=== PATIENT | female | born 1945 | race Caucasian/White ===

== ENCOUNTER 2017-08-21 23:50 | Emergency (ER) | payer MEDICARE, OTHER ==
[~2017-08-21] VITALS: Ht 157.5 cm; Wt 49.1 kg
[~2017-08-21 23:50] MED LIST: ACET325 PO; AMLO10 PO; CLON.2 PO; COZA100T PO; GABA600T PO; KCL10C PO; LEVO50TA4 PO; MENT4GEL2 EX; PROT40TA PO; REME15TA PO; TRAM100T19 PO; TRAZ50TA4 PO
[2017-08-21 23:54] VITALS: BP 128/62; PULSE 93; RESP 32; TEMP 100.4; O2SAT 93
[2017-08-21 23:55] VITALS: O2SAT 95
[2017-08-22] MEDS ORDERED: methylPREDNISolone SOD SUCC 125 MG/2 ML VIAL IV PUSH ONE (00:15)
[2017-08-22] MEDS ORDERED: CEFEPIME INJ 2,000 MG in SODIUM CHLORIDE 0.9% INJ 100 ML IV ONE (00:15)
[2017-08-22] MEDS ORDERED: ACETAMINOPHEN 325 MG TAB PO ONE (00:15)
[2017-08-22] MEDS ORDERED: SODIUM CHLORIDE 0.9% FLUSH 10 ML FLUSH IVF PRN (00:15)
[2017-08-22] MEDS ORDERED: PANT20 PO (00:23)
[2017-08-22] MEDS ORDERED: MS C30TA5 (00:23)
[2017-08-22] MEDS ORDERED: DIAZ2 PO (00:23)
[2017-08-22] MEDS ORDERED: VITA100018 PO (00:23)
[2017-08-22] MEDS ORDERED: MOBI7.5T PO (00:23)
[2017-08-22] MEDS ORDERED: LEVO.05 PO (00:23)
[2017-08-22] MEDS ORDERED: NEUR600T PO (00:23)
[2017-08-22] MEDS ORDERED: CELE20TA PO (00:23)
[2017-08-22] MEDS ORDERED: TRAZ100T10 PO (00:23)
[2017-08-22] MEDS ORDERED: AMLO10 PO (00:23)
[2017-08-22] MEDS ORDERED: MS C15TA7 PO (00:23)
[2017-08-22] MEDS ORDERED: LOSA100T PO (00:23)
[2017-08-22] MEDS ORDERED: TYLE325T PO (00:23)
[2017-08-22] MEDS ORDERED: POTA-163 PO (00:23)
[2017-08-22] MEDS ORDERED: FURO1TAB62 PO (00:23)
[2017-08-22] MEDS ORDERED: MORP-43 PO (00:23)
[2017-08-22] MEDS ORDERED: LEVA500T33 PO (00:23)
[2017-08-22] MEDS: RESP: ALBUTEROL 2.5 MG/IPRATROPIUM 0.5 MG NEB (SCH) INH ×2 (00:29→00:30)
--- NOTE | 2017-08-22 00:40 | RADRPT ---
EXAM DATE: 08/22/2017 12:36 AM EDT AGE/SEX: 71 years / Female INDICATIONS: Shortness of breath. CLINICAL DATA: This is the patient's initial encounter. Patient reports that signs and symptoms have been present for 1 day and indicates a pain score of 0/10. MEDICAL/SURGICAL HISTORY: Hypertension. Chronic obstructive pulmonary disease. Myocardial infa rction. Laryngeal cancer. Hysterectomy. Port placement. COMPARISON: No prior exams available for comparison. FINDINGS: The lungs are clear without infiltrate, nodule, or mass. There is no appreciable pleural effusion for technique. Heart and mediastinum are unremarkable. Right IJ infusaport is present with tip overlapping the expected location of the SVC. CONCLUSION: No acute cardiopulmonary disease. Electronically signed by: Reginald Aguila MD 08/22/2017 12:39 AM EDT
[2017-08-22 00:42] VITALS: O2SAT 96
--- NOTE | 2017-08-22 00:45 | PD ---
HPI Chief Complaint: Respiratory Symptoms Time Seen by Provider: 00:07 Travel History International Travel<30 days: No Contact w/Intl Traveler<30days: No Traveled to known affect area: No History of Present Illness HPI 71-year-old female presents to the emergency department by EMS transport from local retirement for progressively worsening shortness of breath and oxygen desaturation. Patient is status post complete laryngectomy for laryngeal carcinoma and has been under the care of [facility] for management of replaceable laryngectomy tube. Patient goes every 3 months to the [facility] was previously under the care of Dr. Johan Cerna and at her last visit was managed by a new physician April 2017 for replacement of her laryngectomy tube. Patient had chest x-ray yesterday through the retirement and was identified to have a right lower lobe infiltrate and was started on Levaquin. Patient had Levaquin 500 mg 1 dose today. Patient presents here with shortness of breath fever and tachycardia. Patient has had laryngectomy tube in place for greater than 9 years. Patient has had issues with airway occlusion from mucous plugging in the past. Last imaging study that we have in our facility 03/07/14 identified no soft tissue mass or lymphadenopathy within the neck trace to tracheostomy noted extensive emphysematous changes involving the upper lobes bilaterally patient also has history of scleroderma porphyria cutanea tarda narcotic abuse and prior overdose and chronic pain syndrome. PFSH Past Medical History Arthritis: Yes Asthma: No Blood Disorders: No Anxiety: Yes Depression: Yes Heart Rhythm Problems: No Cancer: Yes (LARYNX) Cardiovascular Problems: Yes (1992) High Cholesterol: Yes Chemotherapy: Yes Chest Pain: Yes Congestive Heart Failure: No COPD: Yes Cerebrovascular Accident: Yes (TIA) Diabetes: No Diminished Hearing: No Endocrine: Yes Gastrointestinal Disorders: Yes GERD: Yes Glaucoma: No Genitourinary: No Headaches: Yes Hepatitis: No Hiatal Hernia: No Hypertension: Yes Immune Disorder: Yes (SCLERADERMA) Implanted Vascular Access Dvce: Yes (NON FUNCTIONAL INFUSAPORT) Insomnia: Yes Medical other: Yes (SCLERADERMA, LUPUS, GERD) Musculoskeletal: Yes Neurologic: Yes Psychiatric: Yes Reproductive: No Respiratory: Yes (PERM. TRACH S/P LARYNGECTOMY) Migraines: Yes Myocardial Infarction: Yes (1992) Pneumonia: Yes Radiation Therapy: Yes Seizures: No Sleep Apnea: No Thyroid Disease: Yes (HYPOTHYROID) Ulcer: No PNEUMOCCOCAL Vaccine (Year): 1 Menopausal: Yes : 2 Para: 1 Miscarriage: 1 : 0 Past Surgical History Abdominal Surgery: No AICD: No Appendectomy: No Body Medical Devices: VOICE BOX WITH LARYNGECTOMY 9 YEARS AGO, INFUZA PORT TO RIGHT CHEST -NONFUN Cardiac Surgery: No Cholecystectomy: No Ear Surgery: No Endocrine Surgery: No Eye Surgery: No Genitourinary Surgery: No Gynecologic Surgery: Yes Hysterectomy: Yes (RADICAL) Neurologic Surgery: No Oral Surgery: Yes (LARYNGECTOMY, ESOPHAGEAL DILATION) Pacemaker: No Thoracic Surgery: Yes (PORT PLACEMENT) Other Surgery: Yes (SEE H&P) Social History Alcohol Use: No Tobacco Use: No (QUIT 40 YEARS AGO ) Substance Use: No Allergies-Medications (Allergen,Severity, Reaction): Coded Allergies: *MDRO Multi-Drug Resistant Organism (Verified Allergy, Unknown, 08/22/17) MRSA Reported Meds & Prescriptions Reported Meds & Active Scripts Active Reported Valium (Diazepam) 2 Mg Tab 2 Mg PO QID PRN Trazodone (Trazodone HCl) 100 Mg Tablet 100 Mg PO HS Synthroid (Levothyroxine Sodium) 50 Mcg Tab 50 Mcg PO DAILY Tylenol (Acetaminophen) 325 Mg Tab 975 Mg PO Q6H PRN Protonix (Pantoprazole Sodium) 20 Mg Tab 20 Mg PO DAILY Potassium Chloride ER (Potassium Chloride) 20 Meq Tab 20 Meq PO DAILY Norvasc (Amlodipine Besylate) 10 Mg Tab 10 Mg PO DAILY Neurontin (Gabapentin) 600 Mg Tab 1,200 Mg PO TID Ms Contin (Morphine Sulfate) 15 Mg Tab 30 Mg PO BID Morphabond ER 12 HR (Morphine Sulfate) 15 Mg Tab 15 Mg PO Q12H Mobic (Meloxicam) 7.5 Mg Tab 7.5 Mg PO DAILY Losartan (Losartan Potassium) 100 Mg Tab 100 Mg PO DAILY Lasix (Furosemide) 20 Mg Tab 20 Mg PO BID Vitamin D3 (Cholecalciferol) 1,000 Unit Tab 1,000 Units PO DAILY Levaquin (Levofloxacin) 500 Mg Tablet 500 Mg PO DAILY Celexa (Citalopram Hydrobromide) 20 Mg Tab 20 Mg PO DAILY Review of Systems General / Constitutional: No: Fever, Chills HENT: Positive: Congestion Cardiovascular: No: Chest Pain or Discomfort Respiratory: Positive: Cough, Shortness of Breath, Wheezing Gastrointestinal: No: Vomiting, Abdominal Pain Genitourinary: No: Flank Pain Musculoskeletal: No: Myalgias, Arthralgias Skin: No Rash Neurologic: No: Weakness Psychiatric: Positive: Anxiety Hematologic/Lymphatic: No: Easy Bruising Physical Exam Narrative GENERAL: Well-developed thin elderly appearing female in moderate respiratory distress receiving updraft treatment SKIN: Warm and dry. HEAD: Normocephalic. EYES: No scleral icterus. No injection or drainage. NECK: Supple, trachea midline. No JVD or lymphadenopathy. Midline tracheostomy with laryngectomy tube in place CARDIOVASCULAR: Increased regular rate and rhythm without murmurs, gallops, or rubs. RESPIRATORY: Breath sounds equal and diminished bilaterally. No accessory muscle use. GASTROINTESTINAL: Abdomen soft, non-tender, nondistended. MUSCULOSKELETAL: No cyanosis, or edema. BACK: Nontender without obvious deformity. No CVA tenderness. Data Data Last Documented VS Vital Signs Date Time Temp Pulse Resp B/P (MAP) Pulse Ox O2 Delivery O2 Flow Rate FiO2 08/22/17 05:22 08/22/17 04:25 97 Trach Collar 6.00 70 08/22/17 03:01 128 20 08/21/17 23:54 100.4 Orders Orders Complete Blood Count With Diff (08/22/17:) Comprehensive Metabolic Panel (08/22/17:) B-Type Natriuretic Peptide (08/22/17:) Act Partial Throm Time (Ptt) (08/22/17:09) Prothrombin Time / Inr (Pt) (08/22/17 00:09) Magnesium (Mg) (08/22/17 00:09) Ckmb (Isoenzyme) Profile (08/22/17 00:09) Troponin I (08/22/17:09) Arterial Blood Gas (Abg) (08/22/17 00:09) Blood Culture (08/22/17:09) Iv Access Insert/Monitor (08/22/17:) Electrocardiogram (08/22/17:) Ecg Monitoring (08/22/17:09) Oximetry (08/22/17 00:09) Oxygen Administration (08/22/17 00:09) Chest, Single Ap (08/22/17 00:09) Sodium Chloride 0.9% Flush (Ns Flush) (08/22/17 00:15) Methylprednisolone So Succ Inj (Solumedr (08/22/17 00:15) Albuterol-Ipratropium Neb (Duoneb Neb) (08/22/17 00:15) Lactic Acid (08/22/17 00:09) Acetaminophen (Tylenol) (08/22/17 00:15) Cefepime Inj (Maxipime Inj) (08/22/17 00:15) Resp Oxygen Cool Aerosol (08/22/17 ) Sodium Chlor 0.9% 1000 Ml Inj (Ns 1000 M (08/22/17 01:15) CKMB (08/22/17 00:43) CKMB% (08/22/17 00:43) Radiology Film Requests (08/22/17 ) Sodium Chlorid 0.9% 500 Ml Inj (Ns 500 M (08/22/17 04:30) Labs Laboratory Tests Test 08/22/17 00:12 08/22/17 00:43 Blood Gas Puncture Site RT RADIAL Blood Gas Patient Temperature 98.6 Blood Gas HCO3 28 mmol/L Blood Gas Base Excess 2.3 mmol/L Blood Gas Oxygen Saturation 96 % Arterial Blood pH 7.30 Arterial Blood Partial Pressure CO2 58 mmHg Arterial Blood Partial Pressure O2 115 mmHG Arterial Blood Oxygen Content 15.9 Vol % Arterial Blood Carboxyhemoglobin 0.7 % Arterial Blood Methemoglobin 0.9 % Blood Gas Hemoglobin 11.6 G/DL Oxygen Delivery Device TRACH MASK Blood Gas Liter Flow 6 L/M Blood Gas Inspired Oxygen 100 % White Blood Count 18.4 TH/MM3 Red Blood Count 4.00 MIL/MM3 Hemoglobin 11.9 GM/DL Hematocrit 35.9 % Mean Corpuscular Volume 89.6 FL Mean Corpuscular Hemoglobin 29.8 PG Mean Corpuscular Hemoglobin Concent 33.2 % Red Cell Distribution Width 14.4 % Platelet Count 160 TH/MM3 Mean Platelet Volume 10.6 FL Neutrophils (%) (Auto) 87.9 % Lymphocytes (%) (Auto) 3.9 % Monocytes (%) (Auto) 7.6 % Eosinophils (%) (Auto) 0.0 % Basophils (%) (Auto) 0.6 % Neutrophils # (Auto) 16.2 TH/MM3 Lymphocytes # (Auto) 0.7 TH/MM3 Monocytes # (Auto) 1.4 TH/MM3 Eosinophils # (Auto) 0.0 TH/MM3 Basophils # (Auto) 0.1 TH/MM3 CBC Comment DIFF FINAL Differential Comment Prothrombin Time 11.2 SEC Prothromb Time International Ratio 1.1 RATIO Activated Partial Thromboplast Time 31.0 SEC Blood Urea Nitrogen 38 MG/DL Creatinine 1.77 MG/DL Random Glucose 143 MG/DL Total Protein 9.5 GM/DL Albumin 3.8 GM/DL Calcium Level 8.4 MG/DL Magnesium Level 2.2 MG/DL Alkaline Phosphatase 80 U/L Aspartate Amino Transf (AST/SGOT) 46 U/L Alanine Aminotransferase (ALT/SGPT) 18 U/L Total Bilirubin 0.4 MG/DL Sodium Level 138 MEQ/L Potassium Level 4.9 MEQ/L Chloride Level 99 MEQ/L Carbon Dioxide Level 28.6 MEQ/L Anion Gap 10 MEQ/L Estimat Glomerular Filtration Rate 28 ML/MIN Lactic Acid Level 2.2 mmol/L Total Creatine Kinase 201 U/L Creatine Kinase MB 3.4 NG/ML Creatine Kinase MB % 1.7 % Troponin I 0.02 NG/ML B-Type Natriuretic Peptide 30 PG/ML MDM Medical Decision Making Medical Screen Exam Complete: Yes Emergency Medical Condition: Yes Medical Record Reviewed: Yes Interpretation(s) EKG: Sinus tachycardia with artifact and rare PVC nonspecific ST-T changes no acute ST elevation or injury pattern abg 6L trach cuff pH 7.3, PCO2 58, PO2 115, O2 sat 96%, bicarb 28 CK: 201 mildly elevated CK-MB 3.4 elevated MB percent 1.7% not elevated; troponin I 0.02, not elevated; BNP 30, elevated Lactic acid 2.2 mildly elevated Last Impressions Chest X-Ray 08/22/17 0009 Signed Impressions: CONCLUSION: No acute cardiopulmonary disease. CBC & BMP Diagram 08/22/17 00:43 Total Protein 9.5 H, Albumin 3.8, Calcium Level 8.4 L, Magnesium Level 2.2, Alkaline Phosphatase 80, Aspartate Amino Transf (AST/SGOT) 46 H, Alanine Aminotransferase (ALT/SGPT) 18, Total Bilirubin 0.4 Vital Signs Date Time Temp Pulse Resp B/P (MAP) Pulse Ox O2 Delivery O2 Flow Rate FiO2 08/22/17 03:01 128 20 97/53 (68) 94 Trach Collar 8.00 08/22/17 00:42 96 Trach Collar 08/22/17 00:42 96 Trach Collar 08/21/17 23:55 95 Trach Collar 8.00 98 08/21/17 23:54 100.4 93 32 128/62 (84) 93 Differential Diagnosis Dyspnea, exacerbation COPD, pneumonia, sepsis, device malfunction, airway obstruction, respiratory failure, Narrative Course Patient immediately transferred from EMS stretcher to ED stretcher placed on monitor and storage bin tender with continuous pulse oximetry respiratory at bedside transition to trach cuff with humidified air and DuoNeb updrafts 3 Solu-Medrol 125 mg administered attempted to suction/clear airway. Patient with tracheostomy status post laryngectomy for laryngeal cancer with laryngectomy tube in place with dried secretions at the orifice. No bleeding or drainage at the stoma. Patient does be demonstrating work of breathing. IV access obtained by EMS specimens collected and sent for resulting chest x-ray ordered reveals no lobar infiltrate patient identified to have fever 100.4 cultures obtained lactic acid obtained patient given cefepime had just received Levaquin prior to arrival to the emergency department. CBC with automated differential leukocytosis 18,000 with lactic acid of 2.2 tachycardia and tachypnea with outpatient chest x-ray consistent with right lower lobe infiltrate consistent with sepsis/severe sepsis Patient with renal insufficiency by metabolic panel Cardiac enzymes are found to be not elevated patient's case discussed with agricultural produce sorter regarding sepsis exacerbation COPD respiratory distress discussed patient's laryngectomy tube and specialist and scheduled plan device change first week of August with current presentation recommends transfer to [facility] for definitive care by her managing ENT/ENT group Call placed to [facility] and case discussed with on-call ENT for patient's ENT doctor Dr Lewis (previously Dr Johan Martell) Patient left ED via EMS at [phone] go directly to [facility] emergency department under the care of Dr. Paulino ED physician and ENT physician Dr. Alvarez Physician Communication Physician Communication Discussed case with agricultural produce sorter Dr Mayo; discussed case with [facility] on-call ENT Dr. Alvarez will accept patient for evaluation investigation of patient's laryngectomy tube device with current issues with oxygenation directly to the emergency department from our emergency department; discussed with Dr. Paulino emergency department physician at [facility] will accept patient [facility] for evaluation by ENT Dr. Alvarez. Diagnosis Primary Impression: Malfunction of device Qualified Codes: T85.618A - Breakdown (mechanical) of other specified internal prosthetic devices, implants and grafts, initial encounter Additional Impressions: S/P laryngectomy Sepsis COPD exacerbation Respiratory acidosis Disposition: 70 TRANSFER TO OTHER FACILITY ([facility] ED TO ED DR. PAULINO (ED) AND DR. ALVAREZ (ENT) ACCEPTING PHYSICIANS ) Alayna Hendrickson MD August 22, 2017 00:45
[2017-08-22 00:55] LABS: AUTOMATED NEUTROPHIL # 16.2 TH/MM3 (1.8-7.7); BASOPHIL # 0.1 TH/MM3 (0-0.2); BASOPHIL % 0.6 % (0.0-2.0); HEMATOCRIT 35.9 % (35.0-46.0); HEMOGLOBIN 11.9 GM/DL (11.6-15.3); LYMPH % 3.9 % (9.0-44.0); LYMPHOCYTE # 0.7 TH/MM3 (1.0-4.8); MEAN CELL VOLUME 89.6 FL (80.0-100.0); MEAN CORPUSCULAR HEMOGLOBIN 29.8 PG (27.0-34.0); MEAN CORPUSCULAR HGB CONC 33.2 % (32.0-36.0); MEAN PLATELET VOLUME 10.6 FL (7.0-11.0); MONO % 7.6 % (0.0-8.0); MONOCYTE # 1.4 TH/MM3 (0-0.9); NEUT % 87.9 % (16.0-70.0); PLATELET COUNT 160 TH/MM3 (150-450); RED CELL DISTRIBUTION WIDTH 14.4 % (11.6-17.2); WHITE BLOOD COUNT 18.4 TH/MM3 (4.0-11.0)
[2017-08-22 01:08] LABS: INTERNATIONAL NORMALIZED RATIO 1.1 RATIO; PROTHROMBIN TIME - PATIENT 11.2 SEC (9.8-11.6)
[2017-08-22] MEDS ORDERED: SODIUM CHLOR 0.9% 1000 ML INJ 1,000 ML IV ONE (01:15)
[2017-08-22 01:24] LABS: ALBUMIN 3.8 GM/DL (3.4-5.0); ALKALINE PHOSPHATASE 80 U/L (45-117); ALT (GPT) 18 U/L (10-53); AST (GOT) 46 U/L (15-37); BICARBONATE 28.6 MEQ/L (21.0-32.0); BLOOD UREA NITROGEN 38 MG/DL (7-18); CALCIUM 8.4 MG/DL (8.5-10.1); CHLORIDE 99 MEQ/L (98-107); CREATININE 1.77 MG/DL (0.50-1.00); GLOMERULAR FILTRATION RATE 28 ML/MIN (>89); GLUCOSE,RANDOM 143 MG/DL (74-106); MAGNESIUM 2.2 MG/DL (1.5-2.5); SODIUM (NA) 138 MEQ/L (136-145); TOTAL BILIRUBIN ADULT 0.4 MG/DL (0.2-1.0); TOTAL PROTEIN 9.5 GM/DL (6.4-8.2); TROPONIN I 0.02 NG/ML (0.02-0.05)
[2017-08-22 03:01] VITALS: BP 97/53; PULSE 128; RESP 20; O2SAT 94
[2017-08-22 04:25] VITALS: O2SAT 97
[2017-08-22] MEDS ORDERED: SODIUM CHLORID 0.9% 500 ML INJ 500 ML IV ONE (04:30)
--- NOTE | 2017-08-22 08:04 | EKG ---
Date Performed: 08/22/2017 Time Performed: 00:59:34 PTAGE: 71 years EKG: SINUS TACHYCARDIA WITH OCCASIONAL VENTRICULAR PREMATURE COMPLEXES ST/T-WAVE ABNORMALITY, CO NSIDER LATERAL ISCHEMIA ABNORMAL ECG PREVIOUS TRACING : 05/18/2014 20.14 Compared to previous tracing, heart rate has increased, lat eral ST/T abnormality is now evident. DOCTOR: Mamadou Mayes Interpretating Date/Time 08/22/2017 08:02:29
== END 2017-08-22 05:24 | disposition short-term general hospital (02) ==
LOC: NEPC 23:50
DX: C32.9 Malignant neoplasm of larynx, unspecified (principal); T85.618A Breakdown (mechanical) of other specified internal prosthetic devices, implants and grafts, initial encounter; J44.1 Chronic obstructive pulmonary disease with (acute) exacerbation; E87.2 Acidosis; E03.9 Hypothyroidism, unspecified; I10 Essential (primary) hypertension; Z87.891 Personal history of nicotine dependence
CPT/HCPCS: 36600; 71045; 80053; 82550; 82552; 82805; 83605; 83735; 83880; 84484; 85025; 85610; 85730; 87040; 93005; 94640; 94664; 96361; 96365; 96375; 99285; J0692; J2930; J7030; J7040